=== PATIENT | male | born 1940 | race Caucasian/White ===

== ENCOUNTER 2021-09-06 15:18 | Observation (INO) ==
[2021-09-06 17:21] LABS: VBG HCO3 25 mEq/L (21-27); VBG PCO2 45 mmHg (41-51); VBG PH 7.36 pH Units (7.32-7.42); VBG PO2 34 mmHg (25-50)
[2021-09-06 17:28] LABS: Bilirubin,Urine Negative (Negative); Blood,Urine Trace (Negative); Clarity,Urine Clear (Clear); Color,Urine Yellow (Yellow); Glucose,Urine (UA) Normal (Normal); Hyaline Casts,Urine Few per lpf (None Seen); Ketones,Urine Negative (Negative); Leukocyte Esterase,Urine Negative (Negative); Mucus,Urine Few per lpf (None-Few); Nitrite,Urine Negative (Negative); Protein,Urine 30 mg/dL (Neg-Trace); RBC,Urine 0-3 per hpf (0-3); Specific Gravity,Urine 1.025 (1.010-1.025); Squamous Epithelial Cell,Urine Few per hpf (None-Few); WBC,Urine 0-3 per hpf (0-3)
[2021-09-06 17:33] LABS: Amphetamine Screen,Urine Negative ng/mL (Cutoff=1000); Barbiturate Screen,Urine Negative ng/mL (Cutoff=200); Benzodiazepines Screen,Urine Negative ng/mL (Cutoff=200); Cannabinoid Screen,Urine Negative ng/mL (Cutoff = 50); Cocaine Screen,Urine Negative ng/mL (Cutoff= 300); Opiate Screen,Urine Negative ng/mL (Cutoff=300); Phencyclidine Screen,Urine Negative ng/mL (Cutoff=25)
[2021-09-06 17:56] LABS: Alanine Aminotransferase 8 Units/L (7-52); Albumin 3.5 g/dL (3.5-5.7); Albumin/Globulin Ratio 1.3 (1.1-2.2); Alkaline Phosphatase 63 Units/L (34-104); Aspartate Amino Transferase 12 Units/L (13-39); BUN/Creatinine Ratio 13 (6-26); Bilirubin,Direct 0.1 mg/dL (0.0-0.2); Bilirubin,Indirect 0.5 mg/dL (0.0-1.0); Bilirubin,Total 0.6 mg/dL (0.3-1.0); Blood Urea Nitrogen 27 mg/dL (8-23); Calcium 8.6 mg/dL (8.6-10.3); Carbon Dioxide 25 mEq/L (23-29); Chloride 106 mEq/L (98-107); Ethanol < 10 mg/dL (Less than 10); Globulin 2.7 g/dL (2.4-3.5); Glucose 108 mg/dL (70-105); Osmolality,Calculated 296 (280-300); Potassium 4.2 mEq/L (3.5-5.1); Sodium 140 mEq/L (136-145); Total Protein 6.2 g/dL (6.4-8.9); Troponin I 0.03 ng/mL (< 0.04); eGFR For African Americans 37 (> 60); eGFR For Non-African Americans 30 (> 60)
[2021-09-06 17:57] LABS: Influenza A PCR Negative (Negative); Influenza B PCR Negative (Negative); Resp. Syncytial Virus PCR Negative (Negative)
[2021-09-06 18:09] LABS: SARS-CoV-2 by PCR (In House) Negative (Negative)
[2021-09-06] MEDS ORDERED: Piperacillin/Tazobactam 3.375 GM in 0.9 % Sodium Chloride Mini Bag 100 ML IVPB ONE (18:09)
[2021-09-06] MEDS ORDERED: Vancomycin 1,250 MG/262.5 ML IV.SOLN IVPB ONE (18:09)
[2021-09-06] MEDS ORDERED: 0.9 % Sodium Chloride 1,000 ML IVC ONE (18:10)
[2021-09-06] MEDS ORDERED: Ondansetron ODT 4 MG TAB.RAPDIS SL PRN (19:20)
[2021-09-06] MEDS ORDERED: Melatonin 3 MG TABLET PO PRN (19:20)
[2021-09-06] MEDS ORDERED: Naloxone 0.4 MG/ML INJ IVP PRN (19:20)
[2021-09-06 19:22] LABS: Basophils # 0.1 K/mcL (0.0-0.2); Basophils % 0.6 %; Eosinophils % 0.2 %; Hematocrit 25.7 % (37.5-50.1); Hemoglobin 8.3 g/dL (12.9-16.9); Immature Granulocytes % 0.5 % (0-4); Lymphocytes # 2.3 K/mcL (0.6-4.6); Lymphocytes % 17.7 %; Mean Corpuscular HGB Conc 32.3 g/dL (31.6-35.5); Mean Corpuscular Hemoglobin 30.3 pg (28.0-33.3); Mean Corpuscular Volume 93.8 fL (83.0-100.0); Mean Platelet Volume 10.6 fL (9.4-12.4); Monocytes # 1.2 K/mcL (0.0-1.3); Monocytes % 8.9 %; Neutrophils # 9.4 K/mcL (1.6-8.9); Platelet Count 160 K/mcL (140-400); Red Blood Count 2.74 M/mcL (4.19-5.50); Red Cell Distribution Width 13.2 % (11.5-14.5); Segmented Neutrophils % 72.1 %
[2021-09-06] MEDS ORDERED: Nitroglycerin 0.4 MG TAB.SUBL SL PRN (19:29)
[2021-09-06 19:32] LABS: Activated Partial Thrombo Time 84.6 Seconds (26.0-36.0)
[2021-09-06 19:39] LABS: INR 20.7; Prothrombin Time 224.4 Seconds (9.4-12.1)
[2021-09-06] MEDS ORDERED: Pantoprazole 40 MG VIAL IVP ONE (20:59)
[2021-09-06 22:47] LABS: Activated Partial Thrombo Time 102.9 Seconds (26.0-36.0)
[2021-09-06 22:51] LABS: INR > 29.6; Prothrombin Time > 320.0 Seconds (9.4-12.1)
[2021-09-06] MEDS ORDERED: HUM PROTHROMBIN CPLX IVPB ONE (23:03)
[2021-09-06] MEDS ORDERED: [UNRECOGNIZED DRUG - OTHER] IVPB ONE (23:03)
[2021-09-06] MEDS ORDERED: WATER FOR INJ IVPB ONE (23:03)
[2021-09-06] MEDS ORDERED: 0.9 % Sodium Chloride 250 ML ONE (23:31)
[2021-09-07] MEDS: Latanoprost 2.5 ML BOTTLE BOTH EYES SCH ×2 (01:42→21:00)
[2021-09-07 03:52] LABS: Basophils # 0.1 K/mcL (0.0-0.2); Basophils % 0.5 %; Eosinophils # 0.2 K/mcL (0.0-0.6); Eosinophils % 1.8 %; Hematocrit 26.2 % (37.5-50.1); Hemoglobin 8.6 g/dL (12.9-16.9); Immature Granulocytes % 0.5 % (0-4); Lymphocytes # 2.8 K/mcL (0.6-4.6); Lymphocytes % 21.6 %; Mean Corpuscular HGB Conc 32.8 g/dL (31.6-35.5); Mean Corpuscular Hemoglobin 30.5 pg (28.0-33.3); Mean Corpuscular Volume 92.9 fL (83.0-100.0); Mean Platelet Volume 10.9 fL (9.4-12.4); Monocytes # 1.3 K/mcL (0.0-1.3); Neutrophils # 8.5 K/mcL (1.6-8.9); Platelet Count 176 K/mcL (140-400); Red Blood Count 2.82 M/mcL (4.19-5.50); Red Cell Distribution Width 13.2 % (11.5-14.5); Segmented Neutrophils % 65.6 %; White Blood Count 12.9 K/mcL (4.3-11.1)
[2021-09-07 04:07] LABS: Albumin 3.2 g/dL (3.5-5.7); Albumin/Globulin Ratio 1.1 (1.1-2.2); Bilirubin,Total 0.6 mg/dL (0.3-1.0); Calcium 8.4 mg/dL (8.6-10.3); Globulin 2.8 g/dL (2.4-3.5); Magnesium 1.9 mg/dL (1.6-2.6); Phosphorous 2.3 mg/dL (2.7-4.5); Potassium 3.7 mEq/L (3.5-5.1)
[2021-09-07 04:12] LABS: % Iron Saturation 16 % (20-55); Iron 38 mcg/dL (65-175); Transferrin 173 mg/dL (203-362)
[2021-09-07 04:24] LABS: Ferritin 111 ng/mL (20-250)
[2021-09-07 04:28] LABS: Folate 4.4 ng/mL (3.0-16.0)
[2021-09-07 04:29] LABS: Activated Partial Thrombo Time 31.2 Seconds (26.0-36.0); INR 1.2; Prothrombin Time 13.2 Seconds (9.4-12.1)
[2021-09-07] MEDS ORDERED: Azithromycin 500 MG in 0.9 % Sodium Chloride 250 ML IVPB SCH (09:00)
[2021-09-07] MEDS ORDERED: cefTRIAXone 1,000 MG in 0.9 % Sodium Chloride Mini Bag 100 ML IVPB SCH (09:00)
[2021-09-07] MEDS ORDERED: Mirabegron [Myrbetriq] 50 MG PO SCH (09:00)
[2021-09-07] MEDS ORDERED: Magnesium Sulfate 1 GM/102 ML PIGGYBACK IVPB ONE (12:26)
[2021-09-07 19:34] LABS: INR 1.1; Prothrombin Time 12.8 Seconds (9.4-12.1)
[2021-09-08 04:38] VITALS: O2SAT 98
[2021-09-08] MEDS ORDERED: Acetaminophen 325 MG TABLET PO PRN (08:45)
[2021-09-08 08:50] VITALS: TEMP 99.5
[2021-09-08] MEDS ORDERED: Acetaminophen 325 MG TABLET PO SCH (12:00)
[2021-09-08 12:51] LABS: INR 1.4; Prothrombin Time 15.1 Seconds (9.4-12.1)
[2021-09-08] MEDS ORDERED: *HR* Enoxaparin 40 MG/0.4 ML SYRINGE SQ ONE (13:21)
[2021-09-08 13:39] LABS: Mean Corpuscular Hemoglobin 30.7 pg (28.0-33.3); Mean Corpuscular Volume 95.8 fL (83.0-100.0); Mean Platelet Volume 10.9 fL (9.4-12.4); Platelet Count 185 K/mcL (140-400); Red Blood Count 2.61 M/mcL (4.19-5.50); Red Cell Distribution Width 13.2 % (11.5-14.5); White Blood Count 10.4 K/mcL (4.3-11.1)
[2021-09-08 14:04] LABS: BUN/Creatinine Ratio 15 (6-26); Blood Urea Nitrogen 18 mg/dL (8-23); Calcium 8.5 mg/dL (8.6-10.3); Carbon Dioxide 22 mEq/L (23-29); Chloride 107 mEq/L (98-107); Glucose 103 mg/dL (70-105); Osmolality,Calculated 288 (280-300); Potassium 4.4 mEq/L (3.5-5.1); Sodium 138 mEq/L (136-145); eGFR For African Americans > 60 (> 60); eGFR For Non-African Americans 58 (> 60)
[2021-09-08 17:41] LABS: Influenza A PCR Negative (Negative); Influenza B PCR Negative (Negative); Resp. Syncytial Virus PCR Negative (Negative)
[2021-09-08 17:42] LABS: SARS-CoV-2 by PCR (In House) Negative (Negative)
[2021-09-08 17:56] VITALS: BP 122/72; PULSE 89
== END 2021-09-08 20:15 ==
LOC: EDBD → EMEROOARM 15:18 → 3ANU 15:18 → SUATTDRO 19:45 → 3ANU 22:22 → ICNU 09-07 01:16
PROVIDERS: ADMIT Internal Medicine; ATTEND Internal Medicine